=== PATIENT | male | born 1960 | race Caucasian/White ===

== ENCOUNTER 2018-06-15 08:44 | Day surgery (SDC) | payer BC ==
[~2018-06-15 08:44] MED LIST: ACETAMINOPHEN 1,000 MG/100 ML BTL IV ONE; CEFAZOLIN 2 Gram 2 GM/50 ML BAG IVPB ONE
[2018-06-15] MEDS ORDERED: FENTANYL PF 100MCG/2ML VIAL IV ONE (08:45)
[2018-06-15] MEDS ORDERED: SEVOFLURANE 250 ML INH ONE (08:45)
[2018-06-15] MEDS ORDERED: MORPHINE SULFATE 4 MG/ML VIAL IVP ONE (08:45)
[2018-06-15] MEDS ORDERED: HYDROCODONE/APAP 7.5/325MG TABLET PO ONE (08:45)
[2018-06-15] MEDS ORDERED: ONDANSETRON HCL IV 4 MG/2 ML VIAL IVP ONE (08:45)
[2018-06-15] MEDS ORDERED: MIDAZOLAM HCL 2MG/2ML VIAL IV ONE (08:45)
[2018-06-15] MEDS ORDERED: PROPOFOL 10 MG/ML VIAL IV ONE (08:45)
[2018-06-15] MEDS ORDERED: DEXAMETHASONE 4 MG/ML 1ML VIAL IVP ONE (08:45)
[2018-06-15] MEDS ORDERED: BUPIVACAINE 0.5% W/EPI MPF 30 ML VIAL IVP ONE (08:45)
[2018-06-15] MEDS ORDERED: KETOROLAC 30 MG/ML VIAL IVP ONE (08:45)
[2018-06-15] MEDS ORDERED: MORPHINE SULFATE 4 MG/ML VIAL ONE (11:34)
--- NOTE | 2018-06-16 08:01 | Operative Note ---
DATE OF SURGERY: 06/15/2018 PREOPERATIVE DIAGNOSIS: Internal derangement of the left knee. POSTOPERATIVE DIAGNOSES: 1. Small grade 3 chondromalacia of patella. 2. Tear of the posterior horn of medial meniscus with a large unstable flap. 3. Grade 3 chondromalacia of medial femoral condyle. OPERATION: 1. Left knee arthroscopy with partial medial meniscectomy. 2. Left knee arthroscopy with debridement of the patellofemoral and medial compartments. Staff Surgeon: Jean Boland MD Anesthesia: General. Preparation: Chloraprep. Individual Considerations: None. PROCEDURE: The patient was taken to the operating room and placed supine on the operating room table. The patient had a successful induction with general anesthetic. The left lower extremity was prepped and draped in the usual fashion. The patient had a superolateral inflow cannula placed. Skin was infiltrated with 0.5% Marcaine with epinephrine prior. The knee was inflated with normal saline. An inferomedial and an inferolateral portal were made in a similar fashion. The arthroscope was introduced through the inferolateral portal up into the pouch. Patellofemoral compartment showed small grade 3 change superiorly which was smoothed with a shaver. No significant synovitis and no loose bodies were seen in either gutter. Medially, he had an obvious split tear involving the posterior horn of the medial meniscus with a large unstable flap with a root and stalk posteromedially. This was amputated with a baskets and the posterior horn was debrided out with a shaver, which was then stable. Medial and anterior horns were intact. There was grade 3 change throughout the medial and femoral condyles centrally centered about 45 degrees about the size of maybe a quarter. In the notch, the cruciates were normal and lateral compartment structures were normal. The knee was then irrigated out with saline to remove floating debris. Portals were closed with beau, and 20 mL of 0.5% Marcaine with epinephrine along with 4 mg of morphine and 40 mg of Depo-Medrol were injected into the knee. A sterile bulky compressive dressing was applied. The patient tolerated procedure well. Needle and sponge counts were correct. Estimated blood loss was minimal. The patient was taken back to recovery in good condition. There were no complications. [facility]
== END 2018-06-15 12:26 | disposition home or self-care (01) ==
LOC: SUR 08:44
PROVIDERS: ATTEND Orthopaedic Surgery
DX: S83.242A Other tear of medial meniscus, current injury, left knee, initial encounter (principal); M94.262 Chondromalacia, left knee; K21.9 Gastro-esophageal reflux disease without esophagitis
CPT/HCPCS: 29881; 01400; J1885; J2405; J3010; J0690; J2270